=== PATIENT | female | born 1990 | race Caucasian/White ===

== ENCOUNTER 2021-05-09 19:46 | Emergency (ER) | payer BC ==
[~2021-05-09] VITALS: Ht 162.6 cm; Wt 72.6 kg
[2021-05-09 19:46] VITALS: BP_SYST 133
--- NOTE | 2021-05-09 19:46 | NUR ---
Patient to ER bed 07 to gown for evaluation. Side rails up. Report given to ANDIE FISHER
--- NOTE | 2021-05-09 20:16 | NUR ---
30 YR OLD AOX4, AMBULATORY FEMALE WITH COMPLAINT OF NAUSEA, VOMITING, BODY ACHES, WITH FEVER. PER PT HER THREE FAMILY MEMBERS ARE EXPERIENCING THE EXACT SAME SYMPTOMS. PT DENIES ANY HEADACHE, CHEST PAIN, OR SOB. PT DENEIS ANY HEALTH HX. PT DENIES TAKING ANY MEDICATIONS PRIOR TO ARRIVAL. PT REPORTS SPOUSE RECENTLY TRAVLED [email or web address] FOR WORK. AT THE BEDSIDE, WILL MONITOR ZEINA NEEDED.
[2021-05-09] MEDS ORDERED: ONDANSETRON HCL 4 MG/2 ML VIAL IVP ONE (21:00)
[2021-05-09] MEDS ORDERED: NACL 0.9% 2,000 ML IV ONE (21:00)
[2021-05-09] MEDS ORDERED: KETOROLAC TROMETHAMINE 30 MG VIAL IVP ONE (21:15)
[2021-05-09 21:16] LABS: BASOPHILS % (AUTO) 0.1 % (0.0-2.0); HEMATOCRIT 39.9 % (36-48); HEMOGLOBIN 13.7 g/dL (12.0-16.0); LYMPHOCYTES # (AUTO) 0.2 K/uL (1.0-5.5); MEAN CORPUSCULAR HEMOGLOBIN 29 pg (27-31); MEAN CORPUSCULAR HGB CONC 34 % (32-36); MEAN CORPUSCULAR VOLUME 84 fL (79.0-98.0); MONOCYTES # (AUTO) 0.3 K/uL (0.0-1.0); NEUTROPHILS # (AUTO) 9.7 K/uL (1.8-7.7); NEUTROPHILS % (AUTO) 94.9 % (40.0-70.0); PLATELET COUNT (AUTO) 179 K/uL (130-430); RED BLOOD CELL COUNT(AUTO) 4.74 MIL/uL (4.2-6.2); RED CELL DISTRIBUTION WIDTH 12.8 % (9.0-15.0); WHITE BLOOD COUNT (AUTO) 10.2 K/uL (4.8-10.8)
--- NOTE | 2021-05-09 22:01 | NUR ---
PT REPOTS FEELING MUCH BETTER, MD AWARE. PT RESTING IN BED EYES OPEN WITH SON ON LAP. PT DENIES ANY NAUSEA OR VOMITING RECENTLY. PT GIVEN SUCESSFUL PO CHALLENGE. WILL MONITOR NEEDED
[2021-05-09 22:06] LABS: CALCIUM 8.6 mg/dL (8.4-11.0); CREATININE 0.68 mg/dL (0.55-1.30); POTASSIUM 3.6 mmol/L (3.5-5.1)
[2021-05-09 22:12] LABS: ALBUMIN 4.1 g/dL (3.4-4.8); TOTAL BILIRUBIN 0.8 mg/dL (0.0-1.0)
[2021-05-09] MEDS ORDERED: ONDA-8 TL (22:12)
--- NOTE | 2021-05-09 22:46 | NUR ---
PT NOTIFIED OF DISCHARGE, ENCOURAGED TO FOLLOW UP WITH PRIMARY CARE PHYSICIAN WITHIN 3 DAYS. PT INSTRUCTED TO HYDRATE, AND TAKE PRESCRIPTION ORDERED. ALL QUESTIONS ANSWERED. PT VERBALIZED UNDERSTANDING. IV REMOVED FROM LEFT AC CATHETER INTACT, GAUZE APPLIED TO SITE. PT TOLERATED WELL. PT DICHARGED IN STABLE CONDITION, WITH ALL BELONGINGS, ACCOMPANIED BY SPOUSE AND CHILD.
[2021-05-09 22:49] VITALS: BP_SYST 137
== END 2021-05-09 22:50 | disposition home or self-care (01) ==
LOC: SED 19:46
DX: K52.9 Noninfective gastroenteritis and colitis, unspecified (principal); R11.10 Vomiting, unspecified
CPT/HCPCS: 36415; 80053; 85025; 96361; 96374; 96375; 99284; J1885; J2405; J7030

== ENCOUNTER 2022-03-14 13:57 | Emergency (ER) | payer BC ==
[~2022-03-14] VITALS: Ht 162.6 cm; Wt 65.8 kg
[~2022-03-14 13:57] MED LIST: ONDA-8 TL
[2022-03-14 14:15] VITALS: BP_SYST 112
[2022-03-14 15:54] LABS: BASOPHILS % (AUTO) 0.4 % (0.0-2.0); EOSINOPHILS # (AUTO) 0.5 K/uL (0.0-0.4); EOSINOPHILS % (AUTO) 6.4 % (0.0-4.0); HEMATOCRIT 37.4 % (36-48); HEMOGLOBIN 12.9 g/dL (12.0-16.0); LYMPHOCYTES % (AUTO) 24.1 % (20.5-51.5); MEAN CORPUSCULAR HEMOGLOBIN 30 pg (27-31); MEAN CORPUSCULAR HGB CONC 35 % (32-36); MEAN CORPUSCULAR VOLUME 87 fL (79.0-98.0); MONOCYTES # (AUTO) 0.6 K/uL (0.0-1.0); MONOCYTES % (AUTO) 7.9 % (1.7-9.3); NEUTROPHILS % (AUTO) 61.2 % (40.0-70.0); PLATELET COUNT (AUTO) 221 K/uL (130-430); RED BLOOD CELL COUNT(AUTO) 4.32 MIL/uL (4.2-6.2); RED CELL DISTRIBUTION WIDTH 13.2 % (9.0-15.0); WHITE BLOOD COUNT (AUTO) 8.2 K/uL (4.8-10.8)
[2022-03-14 18:05] VITALS: BP_SYST 117
== END 2022-03-14 18:05 | disposition home or self-care (01) ==
LOC: SED 13:57
DX: O20.0 Threatened abortion (principal); Z3A.01 Less than 8 weeks gestation of pregnancy; Z79.899 Other long term (current) drug therapy
CPT/HCPCS: 36415; 76830-TC; 76857; 84702; 85025; 86901; 99284